=== PATIENT | male | born 1950 | race Caucasian/White ===

== ENCOUNTER → 2018-02-06 | Outpatient (CLI) | payer MEDICARE ==
[2014-01-07 15:03] VITALS: BP 161/89
[~2018-02-06] MED LIST: ATOR20TA58 PO; CARB1TAB22 PO; LISI1TAB3 PO; POTA10TA12 PO; TRAM50TA PO
[2018-02-06 13:15] LABS: CREATININE 1.2 mg/dL (0.7-1.3); GFR 60.2; POTASSIUM 3.9 mmol/L (3.5-5.1)
[2018-02-07 00:16] LABS: CALCIUM PTH 9.1 mg/dL (8.6-10.2); CREATININE PTH 1.15 mg/dL (0.76-1.27); PHOSPHORUS PTH 3.2 mg/dL (2.5-4.5); PTH INTACT 41 pg/mL (15-65)
== END | disposition home or self-care (01) ==
LOC: LAB 12:00
PROVIDERS: ATTEND Psychiatry & Neurology Neurology
DX: G20 Parkinson's disease (principal)
CPT/HCPCS: 36415; 80051; 82306; 82310; 82565; 83970; 84443; 84450; 84460; 84520

== ENCOUNTER → 2018-07-15 | Outpatient (CLI) | payer MEDICARE ==
[2014-01-07 15:03] VITALS: BP 161/89
[2018-07-15 10:02] LABS: ALBUMIN 3.2 g/dL (3.4-5.0); ALBUMIN/GLOBULIN RATIO 0.8 (1.0-1.7); ALK PHOS 78 U/L (46-116); ANION GAP 11 (6-14); AST (SGOT) 8 U/L (15-37); BLOOD UREA NITROGEN 12 mg/dL (8-26); BUN/CREATININE RATIO 10 (6-20); CALCIUM 8.7 mg/dL (8.5-10.1); CARBON DIOXIDE 26 mmol/L (21-32); CHLORIDE 106 mmol/L (98-107); CREATININE 1.2 mg/dL (0.7-1.3); GLUCOSE 117 mg/dL (70-99); POTASSIUM 3.9 mmol/L (3.5-5.1); SODIUM 143 mmol/L (136-145); TOTAL BILIRUBIN 0.6 mg/dL (0.2-1.0)
[2018-07-15 10:05] LABS: ALT (SGPT) < 6 U/L (16-63)
== END | disposition home or self-care (01) ==
LOC: LAB 09:24
PROVIDERS: ATTEND Psychiatry & Neurology Neurology
DX: G25.0 Essential tremor (principal); E55.9 Vitamin D deficiency, unspecified
CPT/HCPCS: 36415; 80053; 82306

== ENCOUNTER → 2019-06-24 | Outpatient (CLI) | payer MEDICARE ==
[2014-01-07 15:03] VITALS: BP 161/89
[~2019-06-24] MED LIST changes: +LISI1TAB23 PO; -LISI1TAB3 PO; -POTA10TA12 PO; +POTASSIUM CHLO10 ME1 PO
[2019-06-24 10:33] LABS: ALBUMIN 3.2 g/dL (3.4-5.0); ALBUMIN/GLOBULIN RATIO 0.9 (1.0-1.7); ALK PHOS 91 U/L (46-116); ALT (SGPT) < 6 U/L (16-63); ANION GAP 10 (6-14); AST (SGOT) 12 U/L (15-37); BLOOD UREA NITROGEN 16 mg/dL (8-26); BUN/CREATININE RATIO 13 (6-20); CALCIUM 8.6 mg/dL (8.5-10.1); CARBON DIOXIDE 24 mmol/L (21-32); CHLORIDE 109 mmol/L (98-107); CREATININE 1.2 mg/dL (0.7-1.3); GFR 59.9; GLUCOSE 118 mg/dL (70-99); SODIUM 143 mmol/L (136-145); TOTAL BILIRUBIN 0.4 mg/dL (0.2-1.0); TOTAL PROTEIN 6.7 g/dL (6.4-8.2)
== END | disposition home or self-care (01) ==
LOC: LAB 09:59
PROVIDERS: ATTEND Psychiatry & Neurology Neurology
DX: G25.0 Essential tremor (principal)
CPT/HCPCS: 36415; 80053